=== PATIENT | female | born 1985 | race Two or more races ===

== ENCOUNTER 2016-08-30 10:11 | Emergency (ER) | payer MEDICAID ==
[~2016-08-30] VITALS: Ht 170.2 cm; Wt 113.2 kg
[2016-08-30 11:11] LABS: BASOPHIL % 0.5 % (0-2); PLATELET COUNT 232 x10^3mcL (130-400); RED CELL DISTRIBUTION WIDTH 13.6 % (11.5-14.5)
[2016-08-30 11:34] LABS: ALBUMIN 3.9 g/dL (3.4-5.0); BILIRUBIN TOTAL 0.2 mg/dL (0.20-1.00); CALCIUM 9.2 mg/dL (8.5-10.1); CREATININE SERUM 1.2 mg/dL (0.6-1.0); POTASSIUM SERUM 3.6 mmol/L (3.5-5.1)
[2016-08-30 11:59] LABS: UA SPECIFIC GRAVITY 1.015 (1.005-1.035); microscopic required? YES; urine erythrocyte 1+ (NEGATIVE)
[2016-08-30 13:34] LABS: AMPHETAMINE QUAL UR NONE DETECTED (NEG <=1000)
[2016-08-30 14:15] VITALS: BP 146/96
== END 2016-08-30 14:15 | disposition home or self-care (01) ==
LOC: ED 10:11
PROVIDERS: Emergency Medicine
DX: N83.202 Unspecified ovarian cyst, left side (principal); N94.6 Dysmenorrhea, unspecified
CPT/HCPCS: J1885; J2270; J2405; J7030